=== PATIENT | female | born 1985 | race Caucasian/White ===

== ENCOUNTER 2018-07-06 23:12 | Emergency (ER) | payer SELFPAY ==
[~2018-07-06] VITALS: Ht 162.6 cm; Wt 95.0 kg
[~2018-07-06 23:12] MED LIST: BUPR-86 PO; DOCU-131 PO; IBUP-1222 PO; OXYC-302 PO; PROM25TA10 PO; QUET100T4 PO; SERT100T PO
[2018-07-06 23:48] LABS: HCG UR SG 1.026 (1.003-1.030)
[2018-07-06 23:56] LABS: CULTURE INDICATED? YES; MICROSCOPIC INDICATED
--- NOTE | 2018-07-07 00:13 | NUR ---
PT AMBULATE WITH STEADY GAIT TO ROOM. CHANGING INTO GOWN
[2018-07-07 00:20] VITALS: BP 152/109
--- NOTE | 2018-07-07 00:23 | NUR ---
PT PRESENTED WITH C/O PAIN TO LOWER BACK X 2 DAYS. DENIED RECENT FALL OR INJURIES. MONITORS APPLIED, SIDERAILS UP X2, CALL LIGHT WITHIN REACH. ERP AT BEDSIDE FOR EVAL
[2018-07-07] MEDS ORDERED: METHOCARBAMOL 750 MG TABLET PO ONE (00:30)
[2018-07-07] MEDS ORDERED: KETOROLAC 30 MG/1 ML IM ONE (00:30)
[2018-07-07] MEDS ORDERED: METHOCARBAMOL 750 MG TABLET ONE (00:34)
[2018-07-07] MEDS ORDERED: KETOROLAC 30 MG/1 ML ONE (00:34)
--- NOTE | 2018-07-07 00:41 | NUR ---
PT MEDICATED PER MAR
== END 2018-07-07 01:24 | disposition home or self-care (01) ==
LOC: ED 07-07 01:18
DX: S39.012A Strain of muscle, fascia and tendon of lower back, initial encounter (principal); F41.1 Generalized anxiety disorder; F31.9 Bipolar disorder, unspecified; Z90.49 Acquired absence of other specified parts of digestive tract; Z87.891 Personal history of nicotine dependence; X58.XXXA Exposure to other specified factors, initial encounter; Y93.89 Activity, other specified; Y92.89 Other specified places as the place of occurrence of the external cause; Y99.8 Other external cause status
CPT/HCPCS: 81001; 81025; 87077; 87086; 87186; 96372; 99283; J1885

== ENCOUNTER 2019-12-03 09:57 | Emergency (ER) | payer OTHER ==
[~2019-12-03] VITALS: Ht 162.6 cm; Wt 92.4 kg
[2019-12-03] MEDS ORDERED: KETOROLAC 30 MG/1 ML ONE (10:19)
--- NOTE | 2019-12-03 10:29 | NUR ---
PT CAME IN CO OF CHEST PAIN THAT STARTED 2 NIGHTS AGO. SAYS ITS A CONSTANT 5/10 PAIN BUT WHEN SHE BREATHS DEEP OR MOVES AROUND IT SHOOTS UP TO A 8/10. PT SAYS SHE WAS TOLD 12 YEARS AGO AT [facility] SHE HAD A PERICARIDAL EFFUSION. PT IS RESTING ON GURNEY. MEDICATED PER JUN. BLANKET PROVIDED. CONNECTED TO MONITORING EQUIPMENT.
[2019-12-03] MEDS ORDERED: KETOROLAC 30 MG/1 ML IM ONE (10:30)
[2019-12-03 10:50] LABS: ALBUMIN 3.8 g/dL (3.4-5.0); ANION GAP 6 mmol/L (5-15); CALCIUM 8.8 mg/dL (8.5-10.1); CHLORIDE 109 mmol/L (98-107); CREATININE 0.69 mg/dL (0.55-1.02)
[2019-12-03 10:53] LABS: TROPONIN I < 0.015 ng/mL (0.000-0.045)
[2019-12-03 11:40] VITALS: BP 106/70
--- NOTE | 2019-12-03 12:10 | NUR ---
MARLENA RN: Patient/Caregiver given discharge instructions and they have confirmed that they understand the instructions. Patient ambulatory with steady gait.
== END 2019-12-03 12:12 | disposition home or self-care (01) ==
LOC: ED 11:08
DX: R07.89 Other chest pain (principal); I21.9 Acute myocardial infarction, unspecified; Z90.49 Acquired absence of other specified parts of digestive tract
CPT/HCPCS: 36415; 71045; 80048; 82040; 84484; 93005; 96372; 99285; J1885